=== PATIENT | female | born 1945 | race Caucasian/White ===

== ENCOUNTER 2021-05-13 16:55 | Emergency (ER) | payer OTHER, MEDICAID ==
[~2021-05-13] VITALS: Ht 157.5 cm; Wt 49.9 kg
--- NOTE | 2021-05-13 17:20 | NUR ---
BIBA BLS TO ER BED 2
[2021-05-13 17:30] VITALS: BP 155/69
--- NOTE | 2021-05-13 17:51 | NUR ---
75 Y/O F HERE FROM A [employer] [facility] LIVING AFTER A UNWITNESED FALL. PATIENT IS NON WERBAL. PATIENT HAS A L ELBOW HEMATOMA, AND BRUSING ON HER LEFT EYE AND FACE.
--- NOTE | 2021-05-13 18:36 | NUR ---
PATIENT TO CT VIA GURNEY.
--- NOTE | 2021-05-13 18:46 | NUR ---
XRAY AT BEDSIDE.
--- NOTE | 2021-05-13 19:22 | NUR ---
REPORT GIVEN TO YECENIA CUEVAS.
--- NOTE | 2021-05-13 19:24 | NUR ---
RECEIVED REPORT FROM SCOTTY CUEVAS
--- NOTE | 2021-05-13 19:26 | NUR ---
CALLED XRAY AND [facility]MAKER STATED XRAY HASNT BEEN DONE DUE TO PT BEING ALOC AND THE TECH NEEDING ANOTHER TECH TO HELP HER.
[2021-05-13] MEDS ORDERED: ACETAMINOPHEN 650 MG/20.3 ML UDC PO ONE (19:55)
--- NOTE | 2021-05-13 20:10 | NUR ---
Patient appears to be resting comfortably in bed WITH HER DOLL. Vital Signs within normal limits. Respirations even and unlabored. BOTH BED RAILS UP AND BED AT LOWEST POSITION.
[2021-05-13] MEDS ORDERED: ACET-2619 PO (22:28)
--- NOTE | 2021-05-13 22:32 | NUR ---
Patient appears to be resting comfortably in bed. Vital Signs within normal limits. Respirations even and unlabored. BOTH BED RAILS UP AND BED AT LOWEST POSITION.
--- NOTE | 2021-05-14 00:15 | NUR ---
Patient appears to be resting comfortably in bed. Vital Signs within normal limits. Respirations even and unlabored. BOTH BED RAILS DOWN AND BED AT LOWEST POSITION.
--- NOTE | 2021-05-14 02:30 | NUR ---
Patient appears to be resting comfortably in bed. Vital Signs within normal limits. Respirations even and unlabored.BOTH BED RAILS UP AND BED AT LOWEST POSITION.
--- NOTE | 2021-05-14 04:10 | NUR ---
Patient appears to be resting comfortably in bed. Vital Signs within normal limits. Respirations even and unlabored.BOTH BED RAILS DOWN AND BED AT LOWEST POSITION.
--- NOTE | 2021-05-14 05:04 | NUR ---
PT TAKEN BY [facility] TRANSPORT BACK TO FACILITY
[2021-05-14 05:10] VITALS: BP 138/66
--- NOTE | 2021-05-14 05:10 | NUR ---
Patient discharged with v/s stable. Written and verbal after care instructions given and explained. Ambulance Transport with to senior care. All questions addressed prior to discharge. Rx of TYLENOL given.
--- NOTE | 2021-05-14 05:10 | NUR ---
The patient's care was reviewed and supervised by Raine Kelsey RN, RN.
--- NOTE | 2021-05-14 05:28 | NUR ---
CALLED THE [facility] TO REPORT PT TRANSFER, THERE WAS NO ANSWER.
== END 2021-05-14 05:04 ==
LOC: MED 16:55
DX: S50.02XA Contusion of left elbow, initial encounter (principal); S05.12XA Contusion of eyeball and orbital tissues, left eye, initial encounter; F03.90 Unspecified dementia, unspecified severity, without behavioral disturbance, psychotic disturbance, mood disturbance, and anxiety; F32.9 Major depressive disorder, single episode, unspecified; F41.9 Anxiety disorder, unspecified; D64.9 Anemia, unspecified; Z79.899 Other long term (current) drug therapy; W18.30XA Fall on same level, unspecified, initial encounter; Y93.89 Activity, other specified; Y92.89 Other specified places as the place of occurrence of the external cause; Y99.8 Other external cause status
CPT/HCPCS: 70486; 73080; 99285